=== PATIENT | male | born 1995 | race Caucasian/White ===

== ENCOUNTER 2016-09-01 04:20 | Emergency (ER) | payer SELFPAY ==
[2016-09-01 04:28] VITALS: BP 149/63
[2016-09-01] MEDS ORDERED: Acetaminophen 325 MG Tab PO ONE (04:40)
[2016-09-01] MEDS ORDERED: Cephalexin 500 MG Cap PO ONE (04:40)
--- NOTE | 2016-09-01 04:45 | EDM.PDOC ---
ED HPI Trauma - General Chief Complaint: Upper Extremity Injury/Pain Stated Complaint: PAINFUL & SWOLLEN RING FINGER ON LEFT HAND Time Seen by Provider: 09/01/16 04:32 Source: Reports: Patient, RN notes reviewed - History of Present Illness INITIAL COMMENTS - FREE TEXT/NARRATIVE: 21-year-old male comes in with pain and swelling base of nailbed left index finger. He states this started 2 days ago, became worse last evening and more painful during the night. He is not aware of any particular injury. There has not been any drainage. No other unusual symptoms Allergies/ADRs: Allergies No Known Allergies Allergy (Verified 09/01/16 04:25) Home Medications: Ambulatory Orders Acetaminophen/HYDROcodone [[place] 325-5 MG] 1 tab PO Q6H PRN #10 tablet 09/01/16 Cephalexin 500 mg PO Q6HR #30 capsule 09/01/16 Past Medical History - Past Surgical History HEENT Surgical History: Reports: Myringotomy w tube(s) Social & Family History - Family History Family Medical History: Noncontributory - Tobacco Use Smoking Status *Q: Current Every Day Smoker Years of Tobacco use: 8 Packs/Tins Daily: 1 - Recreational Drug Use Recreational Drug Use: No Drug Use in Last 12 Months: Yes 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 Frequency: Daily Review of Systems - Review of Systems Review Of Systems: See Below Constitutional: Denies: chills, fever Eyes: Reports: no symptoms Mouth/Throat: Reports: no symptoms Respiratory: Denies: Shortness of Breath Cardiovascular: Denies: chest pain GI/Abdominal: Denies: Nausea, Vomiting Musculoskeletal: Reports: other (Pain and swelling base of nailbed left index finger) Skin: Reports: erythema (Base of nailbed left index finger) Neurological: Denies: Numbness, Tingling Trauma Exam - Physical Exam Exam: See Below General Appearance: Reports: mild distress Head: Reports: atraumatic Throat/Mouth: Reports: Normal inspection Neck: Reports: full range of motion Respiratory Exam: Reports: no respiratory distress Extremities: Reports: other (There is swelling, redness and tenderness base of nailbed left index finger. Very slight fluctuance developing, no drainage, finger otherwise not red or swollen, other fingers and nailbeds normal) Neurologic: Reports: no motor/sensory deficits Course - Vital Signs Last Recorded V/S: Last Vital Signs Temp 98.5 F 09/01/16 04:26 Pulse 104 H 09/01/16 04:26 Resp 16 09/01/16 04:26 BP 149/63 H 09/01/16 04:26 Pulse Ox 100 09/01/16 04:26 - Orders/Labs/Meds Meds: Medications Discontinued Medications Generic Name Dose Route Start Last Admin Trade Name Asad PRN Reason Stop Dose Admin Acetaminophen 975 mg 09/01/16 04:40 09/01/16 04:45 Tylenol PO 09/01/16 04:41 975 mg NOW ONE Administration Cephalexin 500 mg 09/01/16 04:40 09/01/16 04:45 Keflex PO 09/01/16 04:41 500 mg ONETIME ONE Administration - Re-Assessments/Exams Free Text/Narrative Re-Assessment/Exam: 09/01/16 04:48 Have given a dose of Tylenol and also a dose of cephalexin 500 mg by mouth. I' ve offered to drain out for him, I have advised I do that for him but he would rather do this at home when he gets home. Discharge instructions as documented Departure - Departure Time of Disposition: 04:50 Disposition: Home, Self-Care 01 Condition: fair Clinical Impression: Acute paronychia of finger of left hand Prescriptions: Cephalexin 500 mg PO Q6HR #30 capsule Acetaminophen/HYDROcodone [[place] 325-5 MG] 1 tab PO Q6H PRN #10 tablet PRN Reason: Pain Referrals: PCP,None [Primary Care Provider] - Forms: ED Department Discharge Additional Instructions: Soak finger in warm soapy water as frequently as possible for the next several days until infection resolving, cephalexin antibiotic every 6 hours or 4 times daily until gone, he may alternate Tylenol and ibuprofen as needed for discomfort, may take hydrocodone when needed for severe pain, did not take hydrocodone in driving or working. It is recomended you drain this as discussed when you get home, I have offered to do that here in the emergency department but you have decided to do this at home. It will feel better once some of the pus fluid under the skin has been drained and also began to heal more quickly, see provider at clinic if not much better within 3-4 days as expected
== END 2016-09-01 04:51 | disposition home or self-care (01) ==
LOC: JD.ED 04:20
DX: L03.012 Cellulitis of left finger (principal); F17.210 Nicotine dependence, cigarettes, uncomplicated
CPT/HCPCS: 99283; A9270